=== PATIENT | female | born 1945 | race Caucasian/White ===

== ENCOUNTER 2016-10-14 10:13 | Outpatient (RCR) | payer MEDICARE ==
--- OUTSIDE RECORDS SUMMARY | 2016-08-05 10:45 | XMS REPORT | Continuity of Care Document ---
Author Author [facility] Organization [facility] Address Unknown Phone Unavailable Care Team Providers Care Bellows Assembler Name Role Phone Carter Villarreal PCP [phone] Source Comments Some departments are not documenting in the electronic medical record. If you do not see the information that you expected, contact Release of Information in the Health Information Management department at [phone] for further assistance in locating additional records.[facility] Active Allergies and Adverse Reactions Allergen Noted Date Severity Reactions Comments Amoxicillin 11/22/2014 HIVES Antivert 11/22/2014 SEE COMMENTS Heart rate drops Ciprofloxacin 11/22/2014 UNKNOWN Flagyl 11/22/2014 SEE COMMENTS Yeast infection Fluoroquinolones 11/22/2014 UNKNOWN Gluten 11/22/2014 STOMACH UPSET Gluten intolerance Reglan 11/22/2014 UNKNOWN Scopolamine 11/22/2014 SEE COMMENTS Heart rate drops Current Medications Prescription Sig. Disp. Refills Start End Date Status Date amLODIPine (NORVASC) 2.5 Take 2.5 mg by mouth Active mg tablet daily. levothyroxine (SYNTHROID) Take 88 mcg by mouth Active 88 mcg tablet daily. lansoprazole DR(+) Take 30 mg by mouth Active (PREVACID) 30 mg capsule daily. ALPRAZolam (XANAX) 0.25 Take 0.25 mg by mouth Active mg tablet three times daily. 0.25mg in AM, 0.25mg at noon, 0.50 at HS. folic acid (FOLVITE) 1 mg Take 1 Tab by mouth 30 Tab 3 06/18/20 Active tablet daily. 15 prochlorperazine Take 1 Tab by mouth every 50 Tab 3 06/21/20 Active (COMPAZINE) 10 mg tablet 6 hours as needed for 15 Nausea or Vomiting. SENNOSIDES (SENNA PO) Take by mouth. Active cholecalciferol (VITAMIN Take 10,000 Units by Active D-3) 1,000 units tablet mouth daily. CALCIUM CARB/MAGNESIUM Take by mouth. Active CMB #10 (JOSE-MAG PO) VIT Take by mouth. Active W-CA,FE,FA(<1 MG) ( VITAMIN PO) cefdinir (OMNICEF) 300 mg Take 300 mg by mouth Active capsule twice daily. Active Problems Problem Noted Date Myalgia 06/28/2015 Vitamin D deficiency 06/28/2015 Last Assessment & Plan: Patient with hx of vitamin D deficiency. We will check vitamin D level upon return. Hypothyroid 06/28/2015 Last Assessment & Plan: We will check TSH upon return. Pericardial effusion 06/15/2015 Overview: Chronic small pericardial effusion, Reportedly since last year, was felt due to viral. L ast Assessment & Plan: Continue to monitor. Adenocarcinoma of lung (HCC) 06/14/2015 Overview: ammy Schaeffer is a 69 y.o. female with a hx of asthma. Prior smoker, but quit in 1990. Reports h/o hemoptysis and cough in April/2015. CT chest revealed LLL collapse and possible mass that did not respond to antibiotic therapy. 05/23/15 CT chest revealed stable mass like density in the superior segment of the left lower lobe. Mild pericardial effusion. 05/30/15 PET imaging revealed metabolically active lesion in the superior segment of the left lower lobe with probable extensiion to the left lower lobe pulmonary artery.Had underwent EBUS on 05/31/15 EBUS-FNA LLL pathology consistent with adenocarcinoma. Lymph Node, station 11L, EBUS-FNA: Polymorphous population of lymphocytes. No carcinoma identified She denies any recent vomiting or aspiration episodes over the course of the past month. Hemoptysis had been resolved since the bronchoscopy. Patient deneis dyspnea at minimal exertion, she does state she had been much sedentary over last 2 years since she had surgery on her cervical spine. Carboplatin AUC 5 + Alilmta 500 mg/m2 every 21 days, began 06/21/15 Last Assessment & Plan: Dr Mcgee discussed results of CTs done in [place] with the patient and her fiancee. Patient progressed after 2 cycles of Carboplatin + Alimta. Surgery is not feasible r/t tumor proximity to descend thoracic aorta and left lower pulmonary artery. Concurrent chemotherapy and radiation recommended to control the disease. Due to travel distance, patient would like to receive radiation and chemo in [place] but continue to have her care managed by Dr Mcgee. Patient will contact Dr Barron office for appt and we will send all recent information. She will return to us after completing chemo and XRT. Patient will contact our office to make future appt. Fatigue 05/08/2015 Last Assessment & Plan: Patient encouraged to remain as active and rest when needed. Uncomplicated asthma 05/08/2015 Last Assessment & Plan: Will address at later date. Discussed IS is not a treatment of asthma. Will need PFT's etc. Can discuss further once we have address her CT findings. Abnormal chest CT 05/04/2015 Overview: [place] 04.17.2015 CT chest non contrast. Superior segment of LLL rounded atelectasis with ggo Last Assessment & Plan: Will repeat CT in two week with contrast. Consider resolving infection with improvement in her symptoms, recently completed abx. If mass remains will plan for biopsy/PET. CT ordered in [place], will call with recommendations once have seen the images. HTN (hypertension) 01/17/2015 Overview: Labile HTN noted since June 2014. L ast Assessment & Plan: Home BP readings in AM of 88/69. Patient anxious today. We will monitor and consider resumption of BP medication if BP consistently 140/90s. Abdominal pain 12/01/2014 Belching 12/01/2014 Constipation 12/01/2014 Last Assessment & Plan: Patient to increase senokot/stool softener. Bloating 12/01/2014 Social History Tobacco Use Types Packs/Day Years Used Date Former Smoker 01/20/1985 - 11/03/1990 Smokeless Tobacco: Never Used Alcohol Use Drinks/Week oz/Week Comments No Last Filed Vital Signs Vital Sign Reading Time Taken Blood Pressure 134/80 08/21/2015 1:41 PM CDT Pulse 74 08/21/2015 1:41 PM CDT Temperature 36.9 C (98.4 F) 08/21/2015 1:41 PM CDT Respiratory Rate 16 05/04/2015 10:15 AM CDT Height 1.547 m (5' 0.9") 08/21/2015 1:41 PM CDT Weight 64.229 kg (141 lb 9.6 oz) 08/21/2015 1:41 PM CDT Body Mass Index 26.84 08/21/2015 1:41 PM CDT Oxygen Saturation 99% 08/21/2015 1:41 PM CDT Plan of Care Health Maintenance Due Date Last Done Comments Hepatitis C Screening 1945 Physical (Comprehensive) 1953 Exam Pertussis Vaccine 1957 Tetanus Vaccine 1963 Breast Cancer Screening 1986 Colorectal Cancer 1996 Screening Shingles Vaccine 2006 Osteoporosis Screening 2011 Prevnar/Pneumovax (#1) 2011 Influenza Vaccine 07/04/2016 Results from Last 3 Months Not on file
[~2016-10-14 10:13] MED LIST: ADVAIR; ALBU17AE3 IH; ALPR-557 PO; ALPR.25T PO; ALPR.5T PO; ALPR0.25 PO; ALPR0.5T PO; ALPR0.5T7 PO; AML2.5T PO; AMLO2.5T PO; ASP325T PO; ASP81CT PO; CALCIUM CITRATE PO; CALCIUM MAG PO; CEFD300C3 PO; CHOL100055 PO; CLD600T; CYAN100015 SL; CYAN10006 PO; FAMO1TAB PO; FAMO20TA5 PO; FLUT1AER IH; FOLI0.8T PO; FOLI1TAB24 PO; LANS15CA PO; LANS30CA PO; LEVO75TA58 PO; LEVO88TA54 PO; LISI10TA2 PO; LNS30CCR PO; LVT.088T PO; MULT1TAB63; PNT40TEC PO; PREN1TAB79 PO; PROC-1 PO; PROC10TA PO; RT-ALBUINH IH; SALMON OIL; SENN-109 PO; SUCR1TAB36 PO
[2016-10-14] MEDS ORDERED: ALTEPLASE 2 MG (CATHFLO) CANCER CENTER IV ONE (11:00)
[2016-10-14 11:28] LABS: BASOPHILS % (AUTO) 1 % (0-10); EOSINOPHILS # (AUTO) 0.2 10^3/uL (0.0-0.3); EOSINOPHILS % (AUTO) 4 % (0-10); LYMPHOCYTES # (AUTO) 0.6 X 10^3 (1.0-4.0); LYMPHOCYTES % (AUTO) 12 % (12-44); MEAN CORPUSCULAR HEMOGLOBIN 28 PG (25-34); MEAN CORPUSCULAR HGB CONC 34 G/DL (32-36); MEAN CORPUSCULAR VOLUME 83 FL (80-99); MEAN PLATELET VOLUME 8.1 FL (7.4-10.4); MONOCYTES # (AUTO) 0.5 X 10^3 (0.0-1.0); MONOCYTES % (AUTO) 11 % (0-12); NEUTROPHILS # (AUTO) 3.5 X 10^3 (1.8-7.8); NEUTROPHILS % (AUTO) 73 % (42-75); PLATELET COUNT 310 10^3/uL (130-400); RED CELL DISTRIBUTION WIDTH 14.2 % (10.0-14.5); WHITE BLOOD COUNT 4.8 10^3/uL (4.3-11.0)
[2016-10-14 12:39] LABS: ALANINE AMINOTRANSFERASE 14 U/L (0-55); ALBUMIN 4.2 G/DL (3.2-4.5); ANION GAP 11 MMOL/L (5-14); ASPARTATE AMINO TRANSFERASE 17 U/L (5-34); BILIRUBIN,TOTAL 0.5 MG/DL (0.1-1.0); BLOOD UREA NITROGEN 10 MG/DL (7-18); BUN/CREATININE RATIO 11; CALCIUM 9.4 MG/DL (8.5-10.1); CARBON DIOXIDE 25 MMOL/L (21-32); CHLORIDE 103 MMOL/L (98-107); GFR ESTIMATED > 60; GLUCOSE 85 MG/DL (70-105); POTASSIUM 3.8 MMOL/L (3.6-5.0); SODIUM 139 MMOL/L (135-145); TOTAL PROTEIN 6.8 G/DL (6.4-8.2)
--- NOTE | 2016-10-14 13:08 | Diagnostic Imaging Report ---
PA and lateral views of the chest. COMPARISON: 10/04/2016. FINDINGS: Left lower lobe cancer. FINDINGS: There is a small/ moderate left pleural effusion with associated left lower lobe consolidation and atelectasis. There is hyperinflation of the right lung. Mild atelectasis in the left upper lobe also seen. No significant change. There is an infusion port catheter with the tip at the upper SVC level. No effusion on the right side. No pneumothorax. Cervical spine fusion hardware seen. IMPRESSION: Stable consolidation and atelectasis in the left lower lobe with volume loss and small/ moderate left pleural effusion. Dictated by: Dictated on workstation # [id number]
== END 2016-11-03 | disposition home or self-care (01) ==
LOC: ONC 10:13
PROVIDERS: ATTEND Internal Medicine Hematology & Oncology
DX: C34.32 Malignant neoplasm of lower lobe, left bronchus or lung (principal); Z92.21 Personal history of antineoplastic chemotherapy; Z92.3 Personal history of irradiation; Z45.2 Encounter for adjustment and management of vascular access device
CPT/HCPCS: 36415; 36593; 71020; 80053; 85025; 96523; 99213

== ENCOUNTER 2016-11-11 14:37 | Outpatient (RCR) | payer MEDICARE ==
--- OUTSIDE RECORDS SUMMARY | 2016-11-11 14:40 | XMS REPORT | Continuity of Care Document ---
Author Author [facility] Organization [facility] Address Unknown Phone Unavailable Care Team Providers Care Board Setter Name Role Phone Carter Villarreal PCP [phone] Source Comments Some departments are not documenting in the electronic medical record. If you do not see the information that you expected, contact Release of Information in the Health Information Management department at [phone] for further assistance in locating additional records.[facility] Active Allergies and Adverse Reactions Allergen Noted [...] Mcgee discussed results of CTs done in [place] with the patient and her fiancee. Patient progressed after 2 cycles of Carboplatin + Alimta. Surgery is not feasible r/t tumor proximity to descend thoracic aorta and left lower pulmonary artery. Concurrent chemotherapy and radiation recommended to control the disease. Due to travel distance, patient would like to receive radiation and chemo in [place] but continue to have her care managed [...] CT findings. Abnormal chest CT 05/04/2015 Overview: [place] 04.17.2015 CT chest non contrast. Superior segment of LLL rounded atelectasis with ggo Last Assessment & Plan: Will repeat CT in two week with contrast. Consider resolving infection with improvement in her symptoms, recently completed abx. If mass remains will plan for biopsy/PET. CT ordered in [place], will call with recommendations once have seen [...]
[2016-11-11] MEDS ORDERED: ALTEPLASE 2 MG (CATHFLO) CANCER CENTER IV ONE (15:15)
[2016-11-11 15:23] LABS: BASOPHILS % (AUTO) 1 % (0-10); EOSINOPHILS # (AUTO) 0.1 10^3/uL (0.0-0.3); EOSINOPHILS % (AUTO) 1 % (0-10); LYMPHOCYTES # (AUTO) 0.6 X 10^3 (1.0-4.0); LYMPHOCYTES % (AUTO) 8 % (12-44); MEAN CORPUSCULAR HEMOGLOBIN 28 PG (25-34); MEAN CORPUSCULAR HGB CONC 34 G/DL (32-36); MEAN CORPUSCULAR VOLUME 83 FL (80-99); MEAN PLATELET VOLUME 7.8 FL (7.4-10.4); MONOCYTES # (AUTO) 0.9 X 10^3 (0.0-1.0); MONOCYTES % (AUTO) 10 % (0-12); NEUTROPHILS # (AUTO) 6.9 X 10^3 (1.8-7.8); NEUTROPHILS % (AUTO) 81 % (42-75); PLATELET COUNT 332 10^3/uL (130-400); RED CELL DISTRIBUTION WIDTH 13.9 % (10.0-14.5); WHITE BLOOD COUNT 8.5 10^3/uL (4.3-11.0)
[2016-11-11 15:54] LABS: ALBUMIN 4.4 G/DL (3.2-4.5); BILIRUBIN,TOTAL 0.6 MG/DL (0.1-1.0); CALCIUM 9.7 MG/DL (8.5-10.1); CREATININE SERUM 0.99 MG/DL (0.60-1.30); POTASSIUM 4.2 MMOL/L (3.6-5.0); TOTAL PROTEIN 7.5 G/DL (6.4-8.2)
--- NOTE | 2016-11-11 18:24 | Diagnostic Imaging Report ---
INDICATION: Known left lung cancer. Comparison with 10/14/2016. FINDINGS: There has been increased volume loss on the left with only a very small amount of left lung apex now aerated. There continues to be compensatory hyperaeration with shift of mediastinum to the left. The right lung is clear. Port-A-Cath present on the right unchanged in position. No bony abnormalities demonstrated. IMPRESSION: 1. Increasing volume loss on the left with only a small amount of apical lung now aerated. 2. Right lung is hyperaerated with shift of mediastinum to the left. Dictated by: Dictated on workstation # [id number]
== END 2017-02-09 | disposition home or self-care (01) ==
LOC: ONC 14:37
PROVIDERS: ATTEND Internal Medicine Hematology & Oncology
DX: C34.32 Malignant neoplasm of lower lobe, left bronchus or lung (principal); I31.3 Pericardial effusion (noninflammatory); J90 Pleural effusion, not elsewhere classified; I10 Essential (primary) hypertension; E03.9 Hypothyroidism, unspecified; Z79.899 Other long term (current) drug therapy; Z45.2 Encounter for adjustment and management of vascular access device; Z92.21 Personal history of antineoplastic chemotherapy; Z92.3 Personal history of irradiation
CPT/HCPCS: 36415; 36593; 71020; 80053; 85025; 96523; 99213

== ENCOUNTER → 2016-11-13 | Outpatient (CLI) | payer MEDICARE ==
[~2016-11-13] MED LIST changes: +CATHETER FLUSH 10 ML SYR IV PRN; +IOHEXOL 350 MG/ML 100 ML (OMNIPAQUE 350) VIAL IV ONE; +NS 100 ML (IVPB) BAG IV ONE
--- OUTSIDE RECORDS SUMMARY | 2016-11-13 16:12 | XMS REPORT | Continuity of Care Document ---
Author Author [facility] Organization [facility] Address Unknown Phone Unavailable Care Team Providers Care Scientific Software Developer Name Role Phone Carter Villarreal PCP [phone] Source Comments Some departments are not documenting in the electronic medical record. If you do not see the information that you expected, contact Release of Information in the Health Information Management department at [phone] for further assistance in locating additional records.[facility] Active Allergies and Adverse Reactions Allergen Noted [...] Mcgee discussed results of CTs done in [place] with the patient and her fiancee. Patient progressed after 2 cycles of Carboplatin + Alimta. Surgery is not feasible r/t tumor proximity to descend thoracic aorta and left lower pulmonary artery. Concurrent chemotherapy and radiation recommended to control the disease. Due to travel distance, patient would like to receive radiation and chemo in [place] but continue to have her care managed [...] CT findings. Abnormal chest CT 05/04/2015 Overview: [place] 04.17.2015 CT chest non contrast. Superior segment of LLL rounded atelectasis with ggo Last Assessment & Plan: Will repeat CT in two week with contrast. Consider resolving infection with improvement in her symptoms, recently completed abx. If mass remains will plan for biopsy/PET. CT ordered in [place], will call with recommendations once have seen [...]
[2016-11-13 16:41] LABS: CREATININE SERUM 0.94 MG/DL (0.60-1.30)
--- NOTE | 2016-11-13 17:34 | Diagnostic Imaging Report ---
PROCEDURE: CT chest with contrast only. TECHNIQUE: Multiple contiguous axial images were obtained through the chest after administration of intravenous contrast. 75 mL of Omnipaque 350 was administered intravenously. INDICATION: Shortness of breath. Left lung cancer. FINDINGS: There is interval worsening in the left lung compared to 10/21/2016 exam with no aeration of the left lung. The central bronchi in the left lung are completely obliterated, probably related to an infiltrative mass. There is new atelectasis in the left upper lobe with obliteration of the corresponding left lower lobe bronchus. There is a small left pleural effusion mostly in the apex. The pulmonary artery branch point to the left lung is encased with severe narrowing of the left pulmonary artery to the lower lobe. This results in decreased perfusion to the entire left lower lobe in a heterogenous matter. The heart is normal in size. There is a small to moderate pericardial effusion. There is deviation of the heart into the left. The right lung is hyperexpanded. There is an irregular nodule in the right lower lobe, measuring 6 mm in size, larger compared to the previous study, concerning for metastasis. No discrete mediastinal mass. No right hilar lymphadenopathy. The left hilum is inseparable from the abnormalities in the lung with an underlying infiltrative tumor involving the central aspect of the left lung and the left hilum suspected. There is no significant abnormality in the visualized upper sections of the abdomen. There is an infusion port with the tip at the SVC level. The osseous structures appear grossly unremarkable. IMPRESSION: 1. There is encasement of the left hilar structures with obliteration of the lobar and distal branches of the left mainstem bronchus and encasement of the left pulmonary artery branches including significant narrowing of the left lower lobe pulmonary artery. There is significant decreased density in the left lower lobe which is believed to be a result of hypoperfusion and in part from infiltrating mass. The left lower lobe could be at risk of infarction. 2. There is only small left pleural effusion mostly in the apex and there is complete atelectasis in the left upper lobe. 3. Small to moderate pericardial effusion. 4. Slightly larger right lung base 6 mm nodule, likely metastasis. The findings were called to Dr. Mark Ramsay by Dr. Burgos at time of dictation. Dictated by: Dictated on workstation # [id number]
== END ==
LOC: RAD 16:08
PROVIDERS: ATTEND Internal Medicine Critical Care Medicine
DX: R06.02 Shortness of breath (principal); J90 Pleural effusion, not elsewhere classified; C34.32 Malignant neoplasm of lower lobe, left bronchus or lung
CPT/HCPCS: 36415; 71260; 82565; 84520